=== PATIENT | male | born 1995 | race Caucasian/White ===

== ENCOUNTER 2024-03-03 11:46 | Emergency (ER) | payer MEDICAID, OTHER ==
[~2024-03-03] VITALS: Ht 172.7 cm; Wt 74.1 kg
[~2024-03-03 11:46] MED LIST: BUSP5TAB20 PO; MIRT-149 PO; TRAZ-257 PO
[2024-03-03] MEDS ORDERED: LAMO200T10 PO (12:21)
[2024-03-03] MEDS ORDERED: QUET300T19 PO (12:21)
[2024-03-03] MEDS ORDERED: LEVE-71 PO (12:21)
[2024-03-03] MEDS ORDERED: METH36TA22 PO (12:21)
[2024-03-03] MEDS ORDERED: LITH450T25 PO (12:21)
[2024-03-03] MEDS ORDERED: OLAN15TA98 PO (12:21)
[2024-03-03] MEDS ORDERED: OLAN5TAB77 PO (12:21)
[2024-03-03 12:23] VITALS: BP 132/89; PULSE 72; RESP 18; TEMP 98.1; O2SAT 100
[2024-03-03] MEDS: LORazepam 1 MG TABLET PO ONE (12:36)
[2024-03-03] MEDS: DOXYCYCLINE HYCLATE 100 MG TABLET PO ONE (12:36)
[2024-03-03] MEDS: NICOTINE 7 MG/24 HOUR PATCH TD ONE (13:11)
[2024-03-04] MEDS ORDERED: BENZ0.5T52 PO (16:22)
[2024-03-04] MEDS ORDERED: AMPH20CA PO (16:22)
== END 2024-03-03 15:20 ==
LOC: EMS 11:46
DX: L03.011 Cellulitis of right finger (principal); F12.90 Cannabis use, unspecified, uncomplicated; F15.10 Other stimulant abuse, uncomplicated; Z88.0 Allergy status to penicillin; Z79.899 Other long term (current) drug therapy
CPT/HCPCS: 99284; 73140-TC; Z7502; Z7610